=== PATIENT | male | born 1960 | race Caucasian/White ===

== ENCOUNTER 2017-09-04 06:41 | Day surgery (SDC) | payer BC ==
[2017-08-28 15:22] VITALS: BMI 24.4
[~2017-09-04 06:41] MED LIST: HEPARIN SODIUM,PORCINE 5,000 UNIT/ML 1 ML VIAL SQ ONE; HYDROmorphone 0.5 MG/0.5 ML SYRINGE IVP PRN; LACTATED RINGERS 1,000 ML IV SCH; ceFAZolin IN SWFI 2 GM/20 ML SYRINGE IVP ONE
[2017-09-04] MEDS: LIDOCAINE 1% 20 ML VIAL (10MG/ML) FOR IV START INTRADERMA PRN ×2 (07:13→07:14)
[2017-09-04] MEDS ORDERED: DEXAMETHASONE SOD PHOSPHATE 10 MG/ML 1 ML VIAL IV ONE (07:28)
[2017-09-04] MEDS ORDERED: ONDANSETRON 4 MG/2 ML VIAL IVP ONE (07:29)
--- NOTE | 2017-09-04 07:31 | P.GSHP ---
History of Present Illness H&P Date: 09/04/17 Chief Complaint: Right inguinal hernia Patient here today for robotic/laparoscopic repair of his right inguinal hernia. He had a previous left inguinal hernia repaired in an open fashion. He has known about the bulge in the groin for the last 3 years. It is increasing in size. Recently contact me stating he was having more pain. No change in bowel habits. Past Medical History Past Medical History: Hypertension, Osteoarthritis (OA) History of Any Multi-Drug Resistant Organisms: None Reported Past Surgical History: Appendectomy, Joint Replacement, Tonsillectomy Additional Past Surgical History / Comment(s): Bilateral Shoulder replacements; colonoscopy Past Anesthesia/Blood Transfusion Reactions: Postoperative Nausea & Vomiting ( PONV) Smoking Status: Never smoker - Past Family History Mother Family Medical History: No Reported History Medications and Allergies Home Medications Medication Instructions Recorded Confirmed Type L.acidoph,Paracasei, B.lactis 1 each PO DAILY 08/28/17 08/28/17 History [Probiotic] Metoprolol Tartrate [Lopressor] 25 mg PO BID 08/28/17 08/28/17 History Multivitamin [Men's Multi-Vitamin] 1 each PO DAILY 08/28/17 08/28/17 History Allergies Allergy/AdvReac Type Severity Reaction Status Date / Time No Known Allergies Allergy Verified 08/28/17 15:16 Surgical - Exam Vital Signs Temp Pulse Resp BP Pulse Ox 98.3 F 57 L 18 133/93 96 09/04/17 06:57 09/04/17 06:57 09/04/17 06:57 09/04/17 06:57 09/04/17 06:57 Physical exam: General: Well-developed, well-nourished HEENT: Normocephalic, sclerae nonicteric Abdomen: Nontender, nondistended, reducible right inguinal hernia Extremities: No edema Neuro: Alert and oriented Assessment and Plan (1) Right inguinal hernia Narrative/Plan: Will proceed with laparoscopic/robotic repair of the right inguinal hernia. We' ll also evaluate the contralateral side and repair a hernia there at present.Risks of bleeding, infection, recurrence, bladder and bowel injury, numbness, nerve injury, conversion to an open procedure were discussed with the patient. The patient understands and wishes to proceed. Current Visit: Yes Status: Acute Code(s): K40.90 - UNIL INGUINAL HERNIA, W/ O OBST OR GANGR, NOT SPCF RECUR SNOMED Code(s): 651509182
[2017-09-04] MEDS ORDERED: HYDROmorphone (PF) 1 MG/ML ONE (07:42)
[2017-09-04] MEDS ORDERED: fentaNYL (PF) 50 MCG/ML 2 ML AMP ONE (07:42)
[2017-09-04] MEDS ORDERED: GLYCOPYRROLATE 0.2 MG/ML 2 ML VIAL ONE (07:42)
[2017-09-04] MEDS ORDERED: LIDOCAINE 1% INJ 10MG/ML (20 ML MDV) ONE (07:42)
[2017-09-04] MEDS ORDERED: MIDAZOLAM 2 MG/2 ML VIAL ONE (07:42)
[2017-09-04] MEDS ORDERED: NEOSTIGMINE 1 MG/ML 10 ML VIAL ONE (07:42)
[2017-09-04] MEDS ORDERED: ROCURONIUM BROMIDE 10 MG/ML 10 ML VIAL IV ONE (07:42)
[2017-09-04] MEDS ORDERED: PROPOFOL 10 MG/ML 20 ML VIAL IV ONE (07:42)
[2017-09-04] MEDS ORDERED: SUCCINYLCHOLINE CHLORIDE 100 MG/5 ML SYR IV ONE (07:42)
[2017-09-04] MEDS ORDERED: BUPIVACAINE (PF) 0.25% 30 ML VIAL SQ ONE ×2 (08:17)
[2017-09-04 09:26] VITALS: RESP 16; TEMP 97
[2017-09-04] MEDS ORDERED: HYDROmorphone 0.5 MG/0.5 ML SYRINGE IVP PRN (09:33)
[2017-09-04] MEDS ORDERED: HYDROcodone/APAP 5-325MG 1 EACH TAB PO PRN (09:33)
[2017-09-04] MEDS ORDERED: NALOXONE 0.4 MG/ML 1 ML VIAL IV PRN (09:33)
--- NOTE | 2017-09-04 09:41 | P.OP ---
Date of Procedure: 09/04/17 Procedure(s) Performed: PREOPERATIVE DIAGNOSIS: Right inguinal hernia POSTOPERATIVE DIAGNOSIS: Same PROCEDURE: Laparoscopic repair right inguinal hernia with the da Christy robot assistance with mesh SURGEON: Anahy EBL: Minimal ANESTHESIA: General COMPLICATIONS: None OPERATIVE PROCEDURE: Patient was placed in the operating table in the supine position. The patient was placed under general anesthesia. The patient was then placed in lithotomy. The abdomen was prepped and draped in usual sterile fashion. A small curvilinear supraumbilical incision was made. The fascia was retracted anteriorly with [place] forceps. The Veress needle was inserted. The saline drop test was normal. Insufflation took place to 15 mmHg. A 12 mm trocar was then inserted. 2 additional 8 mm trochars were placed in the right upper quadrant and left upper quadrant under visualization. The robotic arms were then brought in and docked into place. The fenestrated bipolar was used in the left arm and the laparoscopic angelique was utilized in the right arm. A 30 12 mm scope was used in the up position. The peritoneal cavity was inspected. There was an obvious defect in the right direct space. The peritoneum was incised in a horizontal fashion cephalad to the internal inguinal ring. Following that careful dissection of the preperitoneal space took place. This took place using both electrocautery, sharp dissection but primarily blunt dissection. Visualization of the pubic tubercle and Abundio's ligament took place medially. Full dissection took place laterally as well. The patient's hernia was direct in nature. Defect size approximately 2 cm. There is also a less than 1 cm femoral hernia present as well. The hernia sac was fully dissected. Once we had adequate space the 15 x 10 progrip mesh was advanced into the preperitoneal space and flattened out appropriately to cover all potential hernia sites. No sutures were used. The peritoneal defect was then closed using a locking 2-0 VLok suture. The pneumoperitoneum was then evacuated. The fascia at the 12 mm site was closed using the Shaun Erickson technique and an 0 Vicryl stitch. The skin of all 3 sites was closed using a 4- 0 Monocryl stitch. Steri-Strips and sterile dressings were applied. DISPOSITION: Stable to recovery room
[2017-09-04 10:55] VITALS: PULSE 51
[2017-09-04 10:57] VITALS: BP 140/85
== END 2017-09-04 12:37 | disposition home or self-care (01) ==
LOC: OR 06:41
PROVIDERS: ATTEND Surgery
DX: K40.90 Unilateral inguinal hernia, without obstruction or gangrene, not specified as recurrent (principal); I10 Essential (primary) hypertension; M19.90 Unspecified osteoarthritis, unspecified site; Z79.899 Other long term (current) drug therapy; K41.90 Unilateral femoral hernia, without obstruction or gangrene, not specified as recurrent
CPT/HCPCS: 49650; 49659; S2900